=== PATIENT | male | born 1945 | race Caucasian/White ===

== ENCOUNTER 2016-11-03 16:20 | Emergency (ER) | payer OTHER ==
[~2016-11-03] VITALS: Ht 167.6 cm; Wt 85.0 kg
[~2016-11-03 16:20] MED LIST: CEPH500C PO; DCL25TEC PO; LORA10TA3 PO
[2016-11-03 16:23] VITALS: Ht 167.6 cm; Wt 85.0 kg
[2016-11-03] MEDS ORDERED: FAMOTIDINE 20 MG INJ IV STA (17:26)
[2016-11-03] MEDS ORDERED: SOD CHLORIDE 0.9% 500 ML IV STA (17:26)
[2016-11-03] MEDS ORDERED: KETOROLAC 15 MG INJ IV STA (17:26)
[2016-11-03] MEDS ORDERED: ONDANSETRON 4 MG INJ IV STA (17:26)
[2016-11-03 18:00] LABS: ADD SCAN DIFF NO
[2016-11-03 18:01] LABS: BASOPHIL # 0.1 10^3/ul (0.0-0.1); BASOPHILS % 0.6 % (0.0-2.0); EOSINOPHILS # 0.2 10^3/ul (0.0-0.5); EOSINOPHILS % 2.7 % (0.0-7.0); HEMATOCRIT 49.9 % (42.0-52.0); HEMOGLOBIN 16.8 g/dl (14.0-18.0); LYMPHOCYTES # 2.4 10^3/ul (0.8-2.9); LYMPHOCYTES % 30.1 % (15.0-51.0); MEAN CORPUSCULAR HEMOGLOBIN 31.9 pg (29.0-33.0); MEAN CORPUSCULAR HGB CONC 33.7 g/dl (32.0-37.0); MEAN CORPUSCULAR VOLUME 94.7 fl (82.0-101.0); MEAN PLATELET VOLUME 11.4 fl (7.4-10.4); MONOCYTE # 0.6 10^3/ul (0.3-0.9); MONOCYTES % 7.5 % (0.0-11.0); NEUTROPHIL # 4.6 10^3/ul (1.6-7.5); NEUTROPHILS % 58.8 % (39.0-77.0); PLATELET COUNT 180 10^3/UL (140-415); RED BLOOD COUNT 5.27 10^6/ul (4.70-6.10); RED CELL DISTRIBUTION WIDTH 13.9 % (11.5-14.5); WHITE BLOOD COUNT 7.9 10^3/ul (4.8-10.8)
[2016-11-03 18:16] LABS: INR 0.99; PROTIME 13.1 Sec (12.2-14.2)
[2016-11-03 18:17] LABS: PARTIAL THROMBOPLASTIN TIME 35.1 Sec (25.0-35.0)
[2016-11-03 18:22] LABS: ALANINE AMINOTRANSFERASE 25 IU/L (13-69); ALBUMIN 4.3 g/dl (3.3-4.9); ALBUMIN/GLOBULIN RATIO 1.72; ALKALINE PHOSPHATASE 67 IU/L (42-121); ANION GAP 11 (8-16); ASPARTATE AMINO TRANSFERASE 21 IU/L (15-46); BILIRUBIN,INDIRECT 0.2 mg/dl (0-1.1); BILIRUBIN,TOTAL 0.2 mg/dl (0.2-1.3); BLOOD UREA NITROGEN 24 mg/dl (7-20); CALCIUM 10.2 mg/dl (8.4-10.2); CARBON DIOXIDE 25 mmol/L (21-31); CHLORIDE 107 mmol/L (97-110); CREATININE 1.08 mg/dl (0.61-1.24); GLUCOSE 87 mg/dl (70-220); SODIUM 139 mmol/L (135-144); TOTAL PROTEIN 6.8 g/dl (6.1-8.1)
[2016-11-03 18:36] LABS: TROPONIN-I < 0.012 ng/ml (0.00-0.12)
[2016-11-03 18:43] VITALS: BP 123/76; PULSE 62; RESP 18; TEMP 97.9
[2016-11-03 18:49] LABS: ADD UMIC YES; UR ASCORBIC ACID NEGATIVE (NEGATIVE); UR BILIRUBIN (Dip) NEGATIVE (NEGATIVE); UR BLOOD (Dip) NEGATIVE (NEGATIVE); UR CLARITY CLEAR (CLEAR); UR COLOR YELLOW (YELLOW); UR GLUCOSE (Dip) NEGATIVE (NEGATIVE); UR KETONES (Dip) NEGATIVE (NEGATIVE); UR LEUKOCYTE ESTERASE (Dip) 1+ Leu/ul (NEGATIVE); UR NITRITE (Dip) NEGATIVE (NEGATIVE); UR RBC 0 /HPF (0-5); UR SPECIFIC GRAVITY (Dip) 1.021 (1.003-1.030); UR TOTAL PROTEIN (Dip) NEGATIVE (NEGATIVE); UR UROBILINOGEN (Dip) NEGATIVE (NEGATIVE)
--- NOTE | 2016-11-03 18:57 | RADRPT ---
PROCEDURE: CT scan of the abdomen and pelvis without IV contrast. CLINICAL INDICATION: 71-year-old male with epigastric pain. TECHNIQUE: Thin section axial, coronal and sagittal images were performed through the abdomen and pelvis without contrast. Radiation Dose: CTDI: 9.94 and DLP: 542 One or more of the following dose reduction techniques were used: - Automated exposure control. - Adjustment of the mA and/or kV according to patient size. Use of iterative reconstruction technique. COMPARISON: Chest x-ray 06/06/2016 06:18 a.m. FINDINGS: Soft tissues: There are dystrophic calcifications which are likely result of old injection sites lat eral to the proximal left femur.. Lungs and pleural spaces: A 6 x 9 x 5 mm calcification is identified in the left lower lobe. The le ft diaphragm consistent with a granuloma. There is elevation of the left diaphragm with plate-like atelectasis in the left lower lobe. There is a second 1-2 mm calcified granuloma at the pleural mindi face in the posterior left costophrenic angle. There are consolidative infiltrates in the right lower lobe. There is additional atelectasis in the lingula. Heart: The heart is mildly enlarged. No pericardial effusion is identified. The liver, common bile duct and gallbladder: Normal. Gastrointestinal: There is no hiatal hernia. The stomach is incompletely distended and this is thou ght to account for gastric wall thickening. The small bowel loops are normal. The vermiform append ix is normal. There is no evidence of diverticulosis or diverticulitis. There is a small midline u mbilical hernia. There is diastasis rectus. Pancreas: There is a prominence in the tail the pancreas. A mass in the tail of pancreas measuring up to 2 x 2.4 cm in size cannot be excluded. This may be the result of a small pancreatic pseudocyst . Hounsfield units measure 15. An MRI with arterial and portal venous phase imaging is recommended for further evaluation. Kidneys, bladder and adrenal glands : A 4.5 cm benign cyst is noted in the lower pole of the left ki dney. A 1.2 cm subcapsular lesion with increased attenuation is noted in the lateral dorsal upper portion of the lower third of the left kidney. This can be further characterized on the MRI of the pancreas . A hemorrhagic cyst, proteinaceous cyst or solid renal mass might present this fashion. A benign cyst is noted in the dorsal midpole of the left kidney. A 5 mm calcification is identified along the dorsal wall of a 2 cm cyst in the subcapsular midpole o f the left kidney. There is a 1.5 cm subcapsular cyst in the dorsal superior lateral third of the left kidney. A 2.6 cm benign subcapsular cyst is noted in the upper pole of the right kidney. A 1.[address] is noted in the lateral lower upper third of the right kidney. A 1 mm nonobstructive nephrolith is identified in the lower pole of the right kidney. Spleen: Normal. Lymph nodes: Normal. Reproductive system and pelvis : The prostate gland is enlarged measuring 5.85 4.8 by 6 cm in height . Physical examination is recommended. No free fluid is noted in the pelvis. Bony elements: There is a intramedullary area of sclerosis and lucency in the proximal diaphysis of the right femur. This could be the result of an old bone infarct or could represent a site of a opal or internal fixation device which was removed over the interval. Clinical correlation is needed. P madi films can be performed if indicated. Findings are likely benign. There is a levoscoliosis of the mid lumbar spine with a dextroscoliosis at the thoracolumbar junctio n. There are extensive degenerative changes in the thoracic and lumbar spine. No acute bony fractu re or bone metastasis is identified. The sacrum and SI joints are normal. The hip joints appear sy mmetrically narrowed. Vasculature: There are vascular calcifications in the abdominal aorta and common iliac arteries. Th ere are vascular calcifications of the origin of the superior mesenteric artery. IMPRESSION: 1. A 2.4 x 2 cm lesion is suspected in the tail the pancreas. It may be the result of a pseudocyst . A triple phase MRI including the pancreas and kidneys is recommended for further characterization of abnormalities described here. 2. There are multiple benign cysts in both kidneys. 3. There is a subcapsular 1.2 cm lesion in the dorsal lateral upper lumbar third of the left kidney . This may be the result of a proteinaceous or hemorrhagic cyst. A solid lesion is not excluded an d can be further characterized on the MRI. 4. 2.1 cm subcapsular cyst ventral mid pole left kidney with a calcification measuring 5 mm along i ts dorsal wall. This is likely a Bosniak type 2 cyst. 5. Cardiomegaly with atherosclerotic calcifications in the coronary arteries. 6. COPD plate-like areas of consolidative infiltrate and atelectasis in the bases of the lungs. Ca lcified granuloma measuring 9 x 6 x 5 mm adjacent to the elevated left diaphragm. 7. Diastasis rectus. 8. Small midline umbilical hernia containing fat. 9. Osteoarthritis of the thoracic and lumbosacral spine with a levoscoliosis of the mid lumbar spin e and compensatory dextroscoliosis in the upper thoracic spine. 10. Enlarged prostate gland. Physical exam recommended. 11. Atherosclerotic vascular disease. RPTAT:AAJJ Physician Torres Date Time Electronically viewed and signed by Evin Saunders Physician on 11/03/2016 18:57 KING/
--- NOTE | 2016-11-03 19:08 | ERD ---
ER Documentation Chief Complaint Date/Time DATE: 11/03/16 TIME: 19:04 Chief Complaint GENERALIZED ABD PAIN X 3 DAYS HPI This is a 71-year-old male who presents to the emergency room for evaluation of abdominal pain that he has had on and off for the past 3 months however has gotten worse over the past 3 days. The patient localizes the pain to the midportion of his abdomen with no radiation. He denies any nausea or vomiting associated with this but states he came to the emergency room for evaluation. He does state that his pain is sometimes worse with food. He denies any diarrhea associated with this and denies any chest pain or shortness of breath or palpitations ROS All systems reviewed and are negative except as per history of present illness. Medications Home Meds Discontinued Reported Medications Diclofenac Sodium* (Diclofenac Sodium*) 25 Mg Tablet.dr, 25 MG PO BID, TAB 09/06/13 Loratadine* (Loratadine*) 10 Mg Tablet, 10 MG PO DAILY 09/06/13 Cephalexin* (Cephalexin*) 500 Mg Capsule, 500 MG PO QID 09/06/13 Allergies Allergies: Coded Allergies: No Known Allergy (Unverified , 11/03/16) PMhx/Soc History of Surgery: Yes (B knee surgery.) Anesthesia Reaction: No Hx Neurological Disorder: No Hx Respiratory Disorders: No Hx Cardiac Disorders: No Hx Psychiatric Problems: No Hx Miscellaneous Medical Probl: Yes (ARTHRITIS) Hx Alcohol Use: No Hx Substance Use: No Hx Tobacco Use: No Smoking Status: Never smoker Physical Exam Vitals Vital Signs Date Time Temp Pulse Resp B/P Pulse Ox O2 Delivery O2 Flow Rate FiO2 11/03/16 18:43 97.9 62 18 123/76 97 Room Air 11/03/16 16:23 98.2 81 18 147/94 98 Physical Exam INITIAL VITAL SIGNS: Reviewed by me GENERAL: The patient is well developed and appropriate for usual state of health in no apparent distress HEENT: Pupils equal, round, and reactive to light. EOMI. There is no scleral icterus. NECK: C-spine is soft and supple, there is no meningismus. There is no cervical lymphadenopathy. LUNGS: Clear to auscultation bilaterally. There are no rales, wheezes or rhonchi. HEART: Regular rate and rhythm, no murmurs, clicks, rubs or gallops. ABDOMEN: Epigastric tenderness to palpation, negative Rasmussen sign, non- distended. There are bowel sounds in all four quadrants. No rebound or guarding. EXTREMITIES: There is no peripheral cyanosis or edema. No focal swelling or erythema. NEUROLOGICAL: The patient moves all four extremities with 5/5 strength. Cranial nerves II - XII are intact. Normal gait. Alert and oriented SKIN: There is no apparent rash or petechiae. HEME/LYMPHATIC: There is no evidence of excessive bruising or lymphedema. PSYCHIATRIC: The patient does not appear anxious or depressed. Result Diagram: 11/03/16 [id number] Results 24 hrs Laboratory Tests Test 11/03/16 17:30 11/03/16 18:40 White Blood Count 7.910^3/ul Red Blood Count 5.2710^6/ul Hemoglobin 16.8g/dl Hematocrit 49.9% Mean Corpuscular Volume 94.7fl Mean Corpuscular Hemoglobin 31.9pg Mean Corpuscular Hemoglobin Concent 33.7g/dl Red Cell Distribution Width 13.9% Platelet Count 34922^3/UL Mean Platelet Volume 11.4fl Neutrophils % 58.8% Lymphocytes % 30.1% Monocytes % 7.5% Eosinophils % 2.7% Basophils % 0.6% Nucleated Red Blood Cells % 0.0/100WBC Neutrophils # 4.610^3/ul Lymphocytes # 2.410^3/ul Monocytes # 0.610^3/ul Eosinophils # 0.210^3/ul Basophils # 0.110^3/ul Nucleated Red Blood Cells # 0.010^3/ul Prothrombin Time 13.1Sec Prothrombin Time Ratio 1.0 INR International Normalized Ratio 0.99 Activated Partial Thromboplast Time 35.1Sec Sodium Level 139mmol/L Potassium Level 4.0mmol/L Chloride Level 107mmol/L Carbon Dioxide Level 25mmol/L Anion Gap 11 Blood Urea Nitrogen 24mg/dl Creatinine 1.08mg/dl Glucose Level 87mg/dl Calcium Level 10.2mg/dl Total Bilirubin 0.2mg/dl Direct Bilirubin 0.00mg/dl Indirect Bilirubin 0.2mg/dl Aspartate Amino Transf (AST/SGOT) 21IU/L Alanine Aminotransferase (ALT/SGPT) 25IU/L Alkaline Phosphatase 67IU/L Troponin I < 0.012ng/ml Total Protein 6.8g/dl Albumin 4.3g/dl Globulin 2.50g/dl Albumin/Globulin Ratio 1.72 Lipase 65U/L Urine Color YELLOW Urine Clarity CLEAR Urine pH 7.0 Urine Specific [place] 1.021 Urine Ketones NEGATIVEmg/dL Urine Nitrite NEGATIVEmg/dL Urine Bilirubin NEGATIVEmg/dL Urine Urobilinogen NEGATIVEmg/dL Urine Leukocyte Esterase 1+[place]/ul Urine Microscopic RBC 0/HPF Urine Microscopic WBC 2/HPF Urine Hemoglobin NEGATIVEmg/dL Urine Glucose NEGATIVEmg/dL Urine Total Protein NEGATIVEmg/dl Current Medications Medications (Trade) Dose Ordered Sig/Arely Route PRN Reason Start Time Stop Time Status Last Admin Dose Admin Sodium Chloride (NS) 500 ml @ 500 mls/hr Q1H STAT IV 11/03/16 17:26 11/03/16 18:25 DC 11/03/16 17:43 Ondansetron HCl (Zofran Inj) 4 mg ONCE STAT IV 11/03/16 17:26 11/03/16 17:28 DC 11/03/16 17:43 Famotidine (Pepcid Iv) 20 mg ONCE STAT IV 11/03/16 17:26 11/03/16 17:28 DC 11/03/16 17:43 Ketorolac Tromethamine (Toradol) 15 mg ONCE STAT IV 11/03/16 17:26 11/03/16 17:28 DC 11/03/16 17:43 Procedures/MDM CT abdomen pelvis without: 1. A 2.4 x 2 cm lesion is suspected in the tail the pancreas. It may be the result of a pseudocyst. A triple phase MRI including the pancreas and kidneys is recommended for further characterization of abnormalities described here. 2. There are multiple benign cysts in both kidneys. 3. There is a subcapsular 1.2 cm lesion in the dorsal lateral upper lumbar third of the left kidney. This may be the result of a proteinaceous or hemorrhagic cyst. A solid lesion is not excluded and can be further characterized on the MRI. 4. 2.1 cm subcapsular cyst ventral mid pole left kidney with a calcification measuring 5 mm along its dorsal wall. This is likely a Bosniak type 2 cyst. 5. Cardiomegaly with atherosclerotic calcifications in the coronary arteries. 6. COPD plate-like areas of consolidative infiltrate and atelectasis in the bases of the lungs. Calcified granuloma measuring 9 x 6 x 5 mm adjacent to the elevated left diaphragm. 7. Diastasis rectus. 8. Small midline umbilical hernia containing fat. 9. Osteoarthritis of the thoracic and lumbosacral spine with a levoscoliosis of the mid lumbar spine and compensatory dextroscoliosis in the upper thoracic spine. 10. Enlarged prostate gland. Physical exam recommended. 11. Atherosclerotic vascular disease. EKG: Rate/Rhythm: [Normal Sinus Rhythm with PVCs] QRS, ST, T-waves: [No changes consistent w/ acute ischemia] Impression: [No evidence of ischemia or arrhythmia] This 71-year-old male presents to the ER for evaluation of abdominal pain. When I evaluated this patient he had epigastric tenderness to palpation. He was afebrile, hemodynamically stable and in no acute distress. On my examination he had mild tenderness. I did obtain lab work including an EKG which is nonischemic and a troponin which is also negative. I did obtain a CT of the abdomen and pelvis which does show pseudocyst and small bilateral infiltrates. This patient has no leukocytosis, no hypoxia. He was given Zofran and Pepcid in the emergency room and a pulmonary evaluation he does state he is feeling better. This patient again is nontoxic-appearing, and given his diagnosis of pancreatic pseudocyst he will be discharged at this time with a prescription for azithromycin for bilateral infiltrates, Zantac for possible gastritis and outpatient gastroenterology referral. Departure Diagnosis: Primary Impression: Abdominal pain Additional Impression: Pancreatic pseudocyst Condition: Stable HADLEY BOTELLO DO Nov 03, 2016 19:07
[2016-11-03] MEDS ORDERED: AZIT250T94 PO (19:10)
[2016-11-03] MEDS ORDERED: RANI150T9 PO (19:10)
== END 2016-11-03 19:36 | disposition home or self-care (01) ==
LOC: E/R 16:20
DX: R10.13 Epigastric pain (principal); K86.3 Pseudocyst of pancreas
CPT/HCPCS: 36415; 74176; 80053; 81001; 83690; 84484; 85025; 85610; 85730; 93005; 96374; 96375; J1885; J2405; J7040; Z7502; Z7610